=== PATIENT | female | born 1995 | race American Indian/Alaskan Native ===

== ENCOUNTER 2018-12-16 20:58 | Emergency (ER) | payer OTHER ==
[2018-12-16] MEDS ORDERED: IBUPROFEN PO ONE (22:08)
[2018-12-16 22:09] VITALS: BP 103/60
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
[2018-12-17] MEDS ORDERED: TYLENOL PO ONE (01:42)
[2018-12-17] MEDS ORDERED: FLEXERIL PO ONE (01:42)
[2018-12-17] MEDS ORDERED: TYLENOL ONE (01:45)
[2018-12-17] MEDS ORDERED: FLEXERIL ONE (01:46)
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
== END 2018-12-17 03:40 | disposition home or self-care (01) ==
LOC: ED 20:58
DX: M54.2 Cervicalgia (principal); V49.49XA Driver injured in collision with other motor vehicles in traffic accident, initial encounter; Y93.89 Activity, other specified; Y92.488 Other paved roadways as the place of occurrence of the external cause; Y99.8 Other external cause status
CPT/HCPCS: 72040; 72100